=== PATIENT | female | born 1945 | race Caucasian/White ===

== ENCOUNTER 2018-12-28 10:54 | Emergency (ER) | payer BC ==
[~2018-12-28] VITALS: Ht 160 cm; Wt 37.6 kg
[2018-12-28 10:54] VITALS: BP 62/22
--- NOTE | 2018-12-28 10:58 | NUR ---
PATIENT IN BED, A/OX0, RESPONSIVE TO STIMULI. PATIENT NOTED TO HAVE DRY BLOOD AROUND THE MOUTH. ATTACHED TO THE MONITOR. CHANGED INTO GOWN.
[2018-12-28] MEDS ORDERED: EPINEPHRINE (1:10,000) SYRINGE 1 MG/10 ML DISP.SYRIN IVP ONE (11:00)
--- NOTE | 2018-12-28 11:13 | NUR ---
ATTEMPTED TO ESTABLISH PERIPHERAL IV, PATIENT NOTED TO BE PULSELESS, DR. AGUIRRE MADE AWARE, CPR INITIATED.
--- NOTE | 2018-12-28 11:14 | NUR ---
DR. AGUIRRE AT BEDSIDE. IO INSERTED ON LEFT KNEE G15.
--- NOTE | 2018-12-28 11:18 | NUR ---
FIRST DOSE IV EPINEPHRINE 1MG GIVEN ON IO. PATIENTS RHYTHM CHECKED ASYSTOLE. NO PULSE DETECTED. Addendum: 01/01/19 at 1026 by FRACISCO ADDENDUM: CORRECT START TIME FOR NORMAL SALINE IV LEFT KNEE IO IV START TIME: 8153
--- NOTE | 2018-12-28 11:20 | NUR ---
CPR CONTINUED, ANOTHER EPINEPHRINE 1MG GIVEN PER DR. AGUIRRE VERBAL ORDER. RECHECKED PULSE, PATIENT STILL PULSELESS.
--- NOTE | 2018-12-28 11:21 | NUR ---
CODE HAS BEEN CALLED OF BY DR. AGUIRRE, PATIENT PRONOUNCED AT 1121.
[2018-12-28] MEDS ORDERED: PANTOPRAZOLE 40 MG VIAL IV ONE (11:30)
[2018-12-28] MEDS ORDERED: IV NS 0.9% 1,000 ML BAG IV ONE (11:30)
[2018-12-28] MEDS ORDERED: ONDANSETRON HCL/PF 4 MG/2 ML VIAL IVP ONE (11:30)
--- NOTE | 2018-12-28 11:35 | NUR ---
CALLED SALES APPRENTICE'S AWAITING PRIMARY MD FOR CONFIRMATION.
--- NOTE | 2018-12-28 11:37 | NUR ---
DAUGHTER RYLAN MADE AWARE.
--- NOTE | 2018-12-28 11:42 | NUR ---
CALLED [facility] SPOKE TO ROSALIND, PT IS CLEARED.
--- NOTE | 2018-12-28 11:50 | NUR ---
CALLED DR ARZATE TO NOTIFY OF EXPIRATION. 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 SPOKE WITH DR HERNANDEZ WHO REFUSED TO TAKE PT INFORMATION, ASKED FOR RECORDS TO BE SENT TO [facility]. SPOKE WITH PHILIP AT [facility] WHO STATED THAT RECORDS SHOULD BE SENT TO THE [facility], AND REQUESTED A MESSAGE BE GIVEN TO DR ARZATE FOR A CALLBACK.
--- NOTE | 2018-12-28 13:09 | NUR ---
SPOKED TO [facility], DR. VILLALPANDO WILL SIGN THE CERTIFICATE.
--- NOTE | 2018-12-28 13:24 | NUR ---
POSTMORTEM CARE PROVIDED.
--- NOTE | 2018-12-28 13:43 | NUR ---
PATIENT TRANSFERRED [place] [facility] [place]
== END 2018-12-28 13:44 | disposition expired ==
LOC: ER 10:59
DX: I46.9 Cardiac arrest, cause unspecified (principal); R57.1 Hypovolemic shock; K92.2 Gastrointestinal hemorrhage, unspecified; R55 Syncope and collapse; F03.90 Unspecified dementia, unspecified severity, without behavioral disturbance, psychotic disturbance, mood disturbance, and anxiety; E83.52 Hypercalcemia; I10 Essential (primary) hypertension; Z87.440 Personal history of urinary (tract) infections; Z85.830 Personal history of malignant neoplasm of bone; Z88.5 Allergy status to narcotic agent
CPT/HCPCS: 31500; 92950; 93005; 96360; 99285; J0171